=== PATIENT | male | born 1990 | race Hispanic/Latino ===

== ENCOUNTER 2018-05-23 05:30 | Emergency (ER) | payer MEDICAID ==
[2018-05-23 05:51] VITALS: BP 149/83; PULSE 88; RESP 20; TEMP 98.1; O2SAT 98
--- NOTE | 2018-05-23 06:11 | C.PDOC ---
History Of Present Illness 27 year old male presents to the ED for evaluation. Patient reports he ran out of his valium and thinks he is withdrawing from it. Patient states he is unable to see his PMD until Saturday. Patient requesting few days refill until he can go see him PMD. Patient denies fever, chills, CP, SOB, nausea, vomit, dizziness, headache, weakness, numbness. Time Seen by Provider: 05/23/18 05:53 Chief Complaint (Nursing): Medical Clearance History Per: Patient History/Exam Limitations: no limitations Onset/Duration Of Symptoms: Hrs Current Symptoms Are (Timing): Still Present Recent travel outside of the [place]: No Additional History Per: Patient Past Medical History Reviewed: Historical Data, Nursing Documentation, Vital Signs Vital Signs: Last Vital Signs Temp 98.1 F 05/23/18 05:32 Pulse 88 05/23/18 05:32 Resp 20 05/23/18 05:32 BP 149/83 05/23/18 05:32 Pulse Ox 98 05/23/18 05:32 - Medical History PMH: Anxiety Surgical History: No Surg Hx Family History: States: Unknown Family Hx - Social History Hx Alcohol Use: No Hx Substance Use: No Review Of Systems Constitutional: Negative for: Fever, Chills Cardiovascular: Negative for: Chest Pain Respiratory: Negative for: Shortness of Breath Gastrointestinal: Negative for: Nausea, Vomiting, Abdominal Pain Skin: Negative for: Rash Psych: Negative for: Depression, Suicidal ideation Physical Exam - Physical Exam Appears: Non-toxic, No Acute Distress Skin: Normal Color, Warm, Dry Head: Atraumatic, Normacephalic Eye(s): bilateral: Normal Inspection Neck: Normal ROM, Supple Chest: Symmetrical Cardiovascular: Rhythm Regular Respiratory: Normal Breath Sounds, No Rales, No Rhonchi, No Wheezing Gastrointestinal/Abdominal: Soft, No Tenderness, No Guarding, No Rebound Extremity: Normal ROM, No Tenderness, No Swelling Neurological/Psych: Oriented x3, Normal Speech, Normal Cognition Gait: Steady ED Course And Treatment O2 Sat by Pulse Oximetry: 98 (ON RA) Pulse Ox Interpretation: Normal Progress Note: Plan: - Valium 10 mg PO. On reassessment, patient is resting comfortably, and is in no acute distress. Patient was instructed to follow up with physician/clinic in 1-2 days for further evaluation. Disposition Counseled Patient/Family Regarding: Diagnosis, Need For Followup - Disposition Referrals: Morenita Gleason MD [Staff Provider] - Disposition: HOME/ ROUTINE Disposition Time: 06:11 Condition: STABLE Additional Instructions: Please try to see your doctor today Return to ER if worse Prescriptions: diaZEpam [Valium] 10 mg PO DAILY #4 tab Forms: [facility] (Bulgarian), General Discharge Instructions - Clinical Impression Clinical Impression: Medical assessment, Encounter for medication refill - PA / [employer] / Resident Statement MD/DO has reviewed & agrees with the documentation as recorded. - Scribe Statement The provider has reviewed the documentation as recorded by the Scribe Roel Walker All medical record entries made by the Scribe were at my direction and personally dictated by me. I have reviewed the chart and agree that the record accurately reflects my personal performance of the history, physical exam, medical decision making, and the department course for this patient. I have also personally directed, reviewed, and agree with the discharge instructions and disposition.
== END 2018-05-23 06:29 | disposition home or self-care (01) ==
LOC: C.ER 05:30
DX: Z76.0 Encounter for issue of repeat prescription (principal); F41.9 Anxiety disorder, unspecified